=== PATIENT | female | born 1990 | race Caucasian/White ===

== ENCOUNTER 2023-11-01 12:30 | Emergency (ER) | payer OTHER ==
[2023-11-01] MEDS ORDERED: SODIUM CHLORIDE 0.9% 1,000 ML IV STA (14:30)
[2023-11-01] MEDS ORDERED: KETOROLAC 30 MG/ML VIAL IVP STA (14:30)
[2023-11-01] MEDS ORDERED: HYDROmorphone 0.5 MG/0.5 ML SYRINGE IVP STA ×2 (14:30→15:52)
[2023-11-01] MEDS ORDERED: ONDANSETRON 4 MG/2 ML VIAL IVP STA (14:30)
--- NOTE | 2023-11-01 14:32 | XRAY Report ---
PROCEDURE: Chest 1V INDICATIONS: SOB TECHNIQUE: One view of the chest was acquired. COMPARISON: None. FINDINGS: Surgical changes and devices: None. Lungs and pleura: No effusions or dense consolidation. Mediastinum: Normal heart size Bones and chest wall: Mild acromioclavicular degenerative changes. IMPRESSION: Single view radiograph. No acute abnormality. Reviewed by: Marty Self MD on 11/01/2023 2:31 PM PST Approved by: Marty Self MD on 11/01/2023 2:31 PM PST Station ID: [id number]
--- NOTE | 2023-11-01 14:32 | ED Physician Documentation ---
History of Present Illness - Stated complaint Stated Complaint: CHEST PX,NUMB - Chief complaint Chief Complaint: Resp - History obtained from History obtained from: Patient - Additonal information Additional information: The patient comes to the emergency department chief complaint of bodyaches, nausea, and fevers after a COVID exposure 3 days ago. The patient states she began to feel sick the next day. By the evening, she was vomiting and has not been able to hold anything down since. She has had fevers up to 100 degrees orally at home. She is also a chills. She states she has aches all over her back and in her joints. She has not had a sore throat. Mild cough. No shortness of breath. No other complaints at this time. She is otherwise healthy. PD PAST MEDICAL HISTORY - Past Medical History Past Medical History: No - Past Surgical History Past Surgical History: Yes General: Cholecystectomy - Present Medications Home Medications: Ambulatory Orders Medication Instructions Recorded Confirmed Ondansetron Odt [Zofran] 4 mg TL Q6H PRN #20 tablet 11/01/23 - Allergies Allergies/Adverse Reactions: Allergies Allergy/AdvReac Type Severity Reaction Status Date / Time No Known Drug Allergies Allergy Verified 11/01/23 12:51 - Social History Does the pt smoke?: No Smoking Status: Never smoker Does the pt drink ETOH?: Yes Does the pt have substance abuse?: No - Immunizations Immunizations are current?: No PD ED PE NORMAL - Vitals Vital signs reviewed: Yes - General General: Alert and oriented X 3, No acute distress, Well developed/nourished - HEENT HEENT: Atraumatic, PERRL, EOMI, Moist mucous membranes - Neck Neck: Supple, no meningeal sign - Cardiac Cardiac: RRR, No murmur - Respiratory Respiratory: No respiratory distress, Clear bilaterally - Abdomen Abdomen: Soft, Non distended, Other (Diffuse mild tenderness, no rebound or guarding.) - Derm Derm: Normal color, Warm and dry, No rash - Extremities Extremities: No deformity, No edema - Neuro Neuro: Alert and oriented X 3, Other (Grossly intact) - Psych Psych: Normal mood, Normal affect Results - Vitals Vitals: Oxygen O2 Source Room air - Labs Labs: Laboratory Tests 11/01/23 12:51 Nasal Adenovirus (PCR) NOT DETECTED Nasal B. parapertussis DNA (PCR) NOT DETECTED Nasal Coronavir 229E PCR NOT DETECTED Nasal Coronavir HKU1 PCR NOT DETECTED Nasal Coronavir NL63 PCR NOT DETECTED Nasal Coronavir OC43 PCR NOT DETECTED Nasal Enterovir/Rhinovir PCR NOT DETECTED Nasal Influenza B PCR NOT DETECTED Nasal Influenza A PCR NOT DETECTED Nasal Parainfluen 1 PCR NOT DETECTED Nasal Parainfluen 2 PCR NOT DETECTED Nasal Parainfluen 3 PCR NOT DETECTED Nasal Parainfluen 4 PCR NOT DETECTED Nasal RSV (PCR) NOT DETECTED Nasal B.pertussis DNA PCR NOT DETECTED Nasal C.pneumoniae (PCR) NOT DETECTED Cheko Human Metapneumo PCR NOT DETECTED Nasal M.pneumoniae (PCR) NOT DETECTED Nasal SARS-CoV-2 (PCR) DETECTED A - Rads (name of study) chest XR Relevant Findings:: Final report received, See rad report (neg) PD Medical Decision Making - ED course Complexity details: reviewed results, re-evaluated patient, considered differential, d/w patient ED course: The patient was treated symptomatically with IV fluids, Zofran, Toradol, and 0.5 mg of Dilaudid. She was worked up a chest x-ray which was negative. EKG had been done in triage and was also unremarkable. A respiratory PCR panel did demonstrate COVID. Patient was found to be feeling better after symptomatic management and felt she was stable for discharge. We have discussed the usual indications for return. Departure - Departure Disposition: 01 Home, Self Care Clinical Impression: COVID-19 Condition: Stable Instructions: ED Viral Syndrome Prescriptions: Ondansetron Odt [Zofran] 4 mg TL Q6H PRN #20 tablet PRN Reason: Nausea / Vomiting Comments: Your chest x-ray looks good, as does your EKG. Not surprisingly, your viral panel is positive for COVID. Although this causes some discomfort, it is generally a self-limited illness that passes without complications. You should rest at home until you are clearly improving. You may take ibuprofen 600 mg every 6 hours and Tylenol/acetaminophen 650 mg every 4 hours, as needed for fever. The antiviral kit you have been given from the emergency department should be taken as directed until the course is complete. As far as your nausea, you should take the antinausea medication that has been prescribed. The prescription has been electronically transmitted to the [facility] pharmacy in [place]. Please be sure you are drinking plenty of fluids on a daily basis. Preferably, for an adult, this should be 8 to 10 cups of water per day. You should stick with clear liquids only, initially in very small amounts at this time, until your stomach is feeling better. A good way to do this is to take 1 or 2 sips and then wait 15 or 20 minutes. If you do not have any vomiting, you may take another 1 or 2 sips and wait another 20 minutes. If you make it through several cycles of this without vomiting, you may slowly increase the frequency of your intake. When you are able to drink normally and you have not had vomiting for at least 24 hours, you may begin to reintroduce solid foods in the form of simple starches, as you feel ready to do so or can tolerate. Simple starches would include things like saltine crackers or Ramen noodles. Please follow-up with your primary doctor as needed. In general, the symptoms of COVID are expected to last anywhere from several days to a couple of weeks. Forms: PCP List Discharge Date/Time: 11/01/23 17:15
[2023-11-01 14:44] LABS: B. PARAPERTUSSIS- RESP PCR PAN NOT DETECTED; B. PERTUSSIS- RESP PCR PANEL NOT DETECTED; C. PNEUMONIAE- RESP PCR PANEL NOT DETECTED; CORONAVIRUS 229E-RESP PCR NOT DETECTED; CORONAVIRUS HKU1-RESP PCR NOT DETECTED; CORONAVIRUS NL63-RESP PCR NOT DETECTED; CORONAVIRUS OC43-RESP PCR NOT DETECTED; HUMAN METAPNEUMOVIRUS NOT DETECTED; INFLUENZA A- RESP PCR PANEL NOT DETECTED; INFLUENZA B - RESP PCR PANEL NOT DETECTED; M. PNEUMONIAE- RESP PCR PANEL NOT DETECTED; PARAINFLUENZA VIRUS 1 NOT DETECTED; PARAINFLUENZA VIRUS 2 NOT DETECTED; PARAINFLUENZA VIRUS 3 NOT DETECTED; PARAINFLUENZA VIRUS 4 NOT DETECTED; RHINOVIRUS/ENTEROVIRUS NOT DETECTED; RSV- RESP PCR PANEL NOT DETECTED
[2023-11-01 14:47] LABS: SARS-CoV-2 -RESP PCR PANEL DETECTED
[2023-11-01] MEDS ORDERED: NIRMATRELVIR/RITONAVIR PREPACK PO STA (15:58)
[2023-11-01 16:23] VITALS: BP 99/65; O2SAT 94
== END 2023-11-01 17:15 | disposition home or self-care (01) ==
LOC: ED 12:30
DX: U07.1 COVID-19 (principal)
CPT/HCPCS: 71045; 87633; 93005; 96374; 96375; 96376; 99284; J1170; J3490